=== PATIENT | female | born 1995 | race Hispanic/Latino ===

== ENCOUNTER 2020-05-08 22:50 | Observation (INO) | payer MEDICAID, OTHER ==
[~2020-05-08] VITALS: Ht 160 cm; Wt 87.5 kg
[~2020-05-08 22:50] MED LIST: NIFE10CA PO
[2020-05-08 23:15] LABS: BASOPHILS % (AUTO) 0.5 % (0.0-5.0); EOSINOPHILS % (AUTO) 0.9 % (0.0-8.0); LYMPHOCYTES % (AUTO) 28.8 % (21.0-51.0); MEAN CORPUSCULAR HEMOGLOBIN 15.8 pg (27.0-33.0); MEAN CORPUSCULAR HGB CONC 25.4 g/dL (32.0-36.0); MEAN CORPUSCULAR VOLUME 62.1 fL (79-99); MONOCYTES % (AUTO) 5.4 % (3.0-13.0); NEUTROPHILS % (AUTO) 63.9 % (40.0-77.0); NUCLEATED RED BLOOD CELLS 0.8 % (0.0-0.19); PLATELET COUNT (AUTO) 349 K/uL (130-400); RED BLOOD CELL COUNT(AUTO) 3.17 MIL/uL (4.00-5.50); RED CELL DISTRIBUTION WIDTH 19.9 % (11.0-15.5); WHITE BLOOD COUNT (AUTO) 10.9 K/uL (4.8-10.8)
[2020-05-08 23:23] LABS: CREATININE 0.9 mg/dL (0.5-1.5); POTASSIUM 3.3 mmol/L (3.5-5.1)
[2020-05-08 23:28] LABS: ALBUMIN 3.6 g/dL (3.5-5.0); TOTAL PROTEIN, SERUM 7.6 g/dL (6.0-8.3)
[2020-05-08 23:30] LABS: HEMATOCRIT 19.7 % (36-48)
[2020-05-08 23:32] LABS: INR 0.99 (0.85-1.15); PROTHROMBIN TIME 10.8 SEC (9.6-11.6)
[2020-05-08 23:36] LABS: APPEARANCE,URINE Clear (CLEAR); BILIRUBIN,URINE Negative (NEGATIVE); COLOR,URINE Yellow (YELLOW); GLUCOSE, URINE (UA) Negative (NEGATIVE); KETONES,URINE Negative (NEGATIVE); LEUKOCYTE ESTERASE ,URINE Trace (NEGATIVE); NITRATE,URINE Negative (NEGATIVE); OCCULT BLOOD,URINE Moderate (NEGATIVE); PROTEIN,URINE Negative (NEGATIVE); UROBILINOGEN,URINE 0.2 mg/dL (0.2-1.0)
[2020-05-08 23:40] LABS: HCG,QUAL RESULT NEGATIVE (NEGATIVE)
[2020-05-09 00:07] LABS: BACTERIA,URINE None Seen /HPF (None Seen); MUCUS,URINE Few LPF (None Seen); SQUAMOUS EPITHELIAL CELL,UR Few /HPF (0-2)
[2020-05-09 00:40] LABS: BASOPHILS % (MANUAL) 1 % (0-2); EOSINOPHILS % (MANUAL) 1 % (1-6); LYMPHOCYTES % (MANUAL) 21 % (22-44); MAN.DIFF COMMENT-IMPRESSION MANUAL DIFFERENTIAL; MONOCYTES % (MANUAL) 2 % (2-9); PLATELET MORPHOLOGY COMMENT ADEQUATE; SEGMENTED NEUTROPHILS % 75 % (40-70)
[2020-05-09] MEDS ORDERED: SODIUM CHLORIDE 0.9% 250 ML IV ONE (01:29)
[2020-05-09] MEDS ORDERED: LACTATED RINGERS 1000ML 1,000 ML IV SCH (01:30)
[2020-05-09] MEDS ORDERED: FERROUS SULFATE 325 MG TABLET.DR PO SCH ×2 (01:30→14:00)
[2020-05-09 01:59] LABS: % IRON SATURATION 2.9 % (22-44)
[2020-05-09] MEDS ORDERED: FERROUS SULFATE 325 MG TABLET.DR ONE (02:24)
[2020-05-09 05:47] VITALS: BP 105/57
[2020-05-09 07:00] VITALS: BP 105/64
[2020-05-09] MEDS ORDERED: IRON SUCROSE COMPLEX 100 MG in SODIUM CHLORIDE 0.9% 50 ML IV SCH (09:00)
[2020-05-09] MEDS ORDERED: FAMOTIDINE/PF 20 MG/2 ML VIAL IV SCH (09:00)
[2020-05-09] MEDS ORDERED: COMPOUND IV MISC 1 EACH IVSOLN MISC PRN (09:15)
[2020-05-09] MEDS ORDERED: POTASSIUM CHLORIDE 20 MEQ ERTAB PO SCH ×2 (09:15→12:00)
[2020-05-09 11:00] VITALS: BP 98/60
[2020-05-09 16:00] VITALS: BP 103/68
[2020-05-09] MEDS ORDERED: FERR324T4 PO (17:24)
[2020-05-09] MEDS ORDERED: DOCU-116 PO (17:24)
== END 2020-05-09 19:05 | disposition home or self-care (01) ==
LOC: EDH 22:50 → EDHIP 22:51 → 4AH 05-09 05:30
PROVIDERS: ADMIT Family Medicine; ATTEND Family Medicine
DX: D50.9 Iron deficiency anemia, unspecified (principal); N92.0 Excessive and frequent menstruation with regular cycle; E66.9 Obesity, unspecified; R55 Syncope and collapse; Z68.34 Body mass index [BMI] 34.0-34.9, adult
CPT/HCPCS: 36415 ×2; 36430; 76856; 80053; 81001; 81025; 82728; 83540; 83550; 83690; 85014; 85018; 85025; 85610; 85730; 86850; 86900; 86901; 86923 ×3; 96365; 96375; 99284; G0378 ×16; J1756; J3490; J7050; J7120; P9016 ×2